=== PATIENT | female | born 1990 | race African-American/Black ===

== ENCOUNTER 2021-06-22 10:53 | Emergency (ER) | payer OTHER ==
[2021-06-22] MEDS ORDERED: MOTRIN600 MG PO (13:46)
== END 2021-06-22 14:38 | disposition home or self-care (01) ==
LOC: FER 10:53
DX: S80.02XA Contusion of left knee, initial encounter (principal); V43.52XA Car driver injured in collision with other type car in traffic accident, initial encounter; Y92.410 Unspecified street and highway as the place of occurrence of the external cause
CPT/HCPCS: 73564

== ENCOUNTER 2022-03-20 18:29 | Emergency (ER) | payer OTHER ==
[~2022-03-20 18:29] MED LIST: MOTRIN600 MG PO
[2022-03-20 19:24] LABS: BASOPHIL 0.4 % (0-2); EOSINOPHIL 1.2 % (0-5); HCT 38.3 % (37.0-47.0); HGB 12.2 g/dl (12.5-16.0); LYMPHOCYTE 36.1 % (15-48); MCHC 31.9 g/dL (32.0-36.0); MCV 94.3 fL (78.0-100.0); MONOCYTE 5.3 % (0-12); MPV 9.7 fL (6.0-9.5); NEUTROPHIL 56.8 % (41-80); NRBC 0; PLT 236 K/uL (150-400); RBC 4.06 M/uL (4.20-5.40); RDW 11.8 % (11.5-14.0); WBC 5.7 K/uL (4.0-10.5)
[2022-03-20 19:48] LABS: BUN 10 mg/dL (7-18); BUN/CREAT RATIO (CALC) 12.3 RATIO; CHLORIDE 104 mmol/L (98-107); CO2 (BICARBONATE) 28 mmol/L (21-32); CREATININE 0.81 mg/dL (0.51-0.95); GLUCOSE 81 mg/dL (74-106); POTASSIUM 3.5 mmol/L (3.5-5.1)
[2022-03-20 21:21] LABS: BILIRUBIN NEGATIVE (NEGATIVE); BLOOD 1+ Ery/uL (NEGATIVE); CLARITY CLEAR (CLEAR); COLOR YELLOW (YELLOW); GLUCOSE (U) NORMAL (NORMAL); LEUKOCYTES NEGATIVE Leu/uL (NEGATIVE); NITRITE NEGATIVE (NEGATIVE); PROTEIN NEGATIVE (NEGATIVE)
[2022-03-20 21:27] LABS: SQUAMOUS EPITHELIAL CELLS RARE; URINARY WBC RARE
[2022-03-20 21:35] LABS: CORONAVIRUS 2019 SARS-COV-2 NEGATIVE (NEGATIVE); INFLUENZA A NAA NEGATIVE (NEGATIVE)
[2022-03-20] MEDS ORDERED: VENTOLIN HFA IN18 GM INH (22:07)
[2022-03-20] MEDS ORDERED: ATARAX25 MG PO (22:08)
== END 2022-03-20 22:41 | disposition home or self-care (01) ==
LOC: FER 18:29
PROVIDERS: Internal Medicine; Nurse Practitioner Family
DX: R07.89 Other chest pain (principal); R06.02 Shortness of breath; I10 Essential (primary) hypertension; Z20.822 Contact with and (suspected) exposure to COVID-19
CPT/HCPCS: 36415; 71045; 71275; 80048; 81001; 84484; 85025; 85379; 93005; 94640; 94664; J1885; J2060; Q9967; U0002